=== PATIENT | female | born 1985 | race Hispanic/Latino ===

== ENCOUNTER 2024-12-06 07:48 | Emergency (ER) | payer OTHER ==
[2024-12-06] MEDS ORDERED: ONDANSETRON 4 MG/2 ML VIAL ONE (08:25)
[2024-12-06] MEDS ORDERED: HYDROCODONE/APAP 5/325 MG TAB ONE (08:25)
[2024-12-06] MEDS ORDERED: MORPHINE 4 MG/ML SYR ONE (08:25)
--- NOTE | 2024-12-06 09:01 | RAD REPORT ---
Exam:Wrist Left 2 View HISTORY: Left wrist pain FINDINGS: Fracture distal diaphysis left radius with marked displacement of the fracture fragments
--- NOTE | 2024-12-06 09:51 | ER ---
Nurse's Notes [facility] Name: Kimberly Daniels Age: 39 yrs Sex: Female : 1985 Arrival Date: 12/06/2024 Time: 07:48 Bed 11 Private MD: Diagnosis: Fracture of shaft of radius Presentation: 12/06 08:45 Chief complaint: Patient states: slipped and fell, left wrist injury. Coronavirus iw screen: At this time, the client does not indicate any symptoms associated with coronavirus-19. Ebola Screen: No symptoms or risks identified at this time. Initial Sepsis Screen: Does the patient meet any 2 criteria? No. Patient's initial sepsis screen is negative. Does the patient have a suspected source of infection? No. Patient's initial sepsis screen is negative. Risk Assessment: Do you want to hurt yourself or someone else? Patient reports no desire to harm self or others. Onset of symptoms was December 06, 2024. 08:45 Method Of Arrival: Ambulatory iw 08:45 Acuity: SARAH 3 iw Historical: - Allergies: 08:46 No Known Allergies; iw - PMHx: 08:46 None; iw - PSHx: 08:46 section; iw Screenin:19 [facility] ED Fall Risk Assessment (Adult) History of falling in the last 3 months, iw including since admission Yes- single mechanical fall (1 pt) Confusion or Disorientation No (0 pts) Intoxicated or Sedated No (0 pts) Impaired Gait No (0 pts) Mobility Assist Device Used No (0 pt) Altered Elimination No (0 pt) Score/Fall Risk Level 0 - 2 = Low Risk Oriented to surroundings, Maintained a safe environment. Abuse screen: Denies threats or abuse. Denies injuries from another. Nutritional screening: No deficits noted. Tuberculosis screening: No symptoms or risk factors identified. Assessment: 10:00 General: Appears uncomfortable, Behavior is cooperative, appropriate for age. Pain: iw Complains of pain in left wrist and dorsal aspect of left forearm. Neuro: Level of Consciousness is awake, alert, obeys commands, Oriented to person, place, time, situation, Moves all extremities. Full function. Cardiovascular: Patient's skin is warm and dry. Respiratory: Respiratory effort is even, unlabored, Respiratory pattern is regular, symmetrical. Derm: Skin is intact. Musculoskeletal: Range of motion: limited in left wrist and dorsal aspect of left forearm. Vital Signs: 08:45 BP 144 / 97; Pulse 87; Resp 18; Temp 98.7; Pulse Ox 99% on R/A; Weight 122.47 kg; iw Height 5 ft. 4 in. ; Pain 10/10; 08:45 Body Mass Index 46.34 (122.47 kg, 162.56 cm) iw 08:45 Pain Scale: Adult iw ED Course: 07:49 Patient arrived in ED. mr 07:57 Brannon Cox FNP-C is PHCP. dr5 07:57 David Martins MD is Attending Physician. dr5 08:41 Wrist Left 2 View In Process Unspecified. EDMS 08:45 Torri Carpio, GIN is Primary Nurse. iw 08:46 Triage completed. iw 08:50 Inserted saline lock: 20 gauge in right antecubital area, using aseptic technique. zm Flushed with 10 mL NS. 09:44 Orthoglass splint: Sugar tong splint applied on left arm. Sling applied to left arm. zm 09:49 Israel Smith MD is Referral Physician. dr5 09:49 Dexter Rosas MD is Referral Physician. dr5 Administered Medications: 08:47 Drug: HYDROcodone-acetaminophen PO 5 mg-325 mg 2 tabs PO once Route: PO; iw 11:49 Follow up: Response: No adverse reaction; Pain is decreased iw 09:13 Drug: Ondansetron IVP 4 mg IVP once; over 2 minutes Route: IVP; Site: right antecubital;iw 09:35 Follow up: Response: No adverse reaction iw 09:14 Drug: morphine IVP or IV 4 mg IVP once over 4 mins Route: IVP; Infused Over: 4 mins; iw Site: right antecubital; 09:35 Follow up: Response: No adverse reaction; Pain is decreased iw Outcome: 09:50 Discharge ordered by . dr5 10:20 Patient left the ED. iw Signatures: Dispatcher [employer] EDNV Lianne Patiño, Reg Reg mr Torri Carpio, RN RN iw Antonia Durand Dustin, FNP-C ENGINEERING TECHNICAL WRITER-Cdr5 Corrections: (The following items were deleted from the chart) 12:01 11:55 General: Appears uncomfortable, iw iw 12:01 11:00 Pain: Complains of pain in left wrist and dorsal aspect of left forearm iw iw : 11:00 Neuro: Level of Consciousness is awake, alert, obeys commands, Oriented to iw person, place, time, situation, Moves all extremities. Full function iw : 11:00 Cardiovascular: Patient's skin is warm and dry. iw iw : 11:00 Derm: Skin is intact, iw iw : 11:00 Musculoskeletal: Range of motion: limited in left wrist and dorsal aspect of left iw forearm iw : 11:00 General: Appears uncomfortable, Behavior is cooperative, appropriate for age, iw iw : 11:00 Respiratory: Respiratory effort is even, unlabored, Respiratory pattern is iw regular, symmetrical, iw
--- NOTE | 2024-12-06 09:51 | EDPHYS ---
Physician Documentation [facility] Name: Kimberly Daniels Age: 39 yrs Sex: Female : 1985 Arrival Date: 12/06/2024 Time: 07:48 Bed 11 Private MD: ED Physician David Martins HPI: 12/06 08:48 This 39 yrs old Female presents to ER via Ambulatory with complaints of Fall dr5 Injury, Left, Wrist Injury. 08:48 Patient is a 39-year-old female with no past medical history coming in with FOOSH dr5 injury to left wrist/forearm that occurred this morning while walking the dog. She slipped and fell. Patient denies numbness or tingling.. Historical: - Allergies: 08:46 No Known Allergies; iw - PMHx: 08:46 None; iw - PSHx: 08:46 section; iw ROS: 08:48 Constitutional: as per hpi dr5 Exam: 08:48 Constitutional: This is a well developed, well nourished patient who is awake, alert, dr5 and in no acute distress. Head/Face: Normocephalic, atraumatic. ENT: Nares patent. No nasal discharge, no septal abnormalities noted. Tympanic membranes are normal and external auditory canals are clear. Oropharynx with no redness, swelling, or masses, exudates, or evidence of obstruction, uvula midline. Mucous membranes moist. Neck: Trachea midline, no thyromegaly or masses palpated, and no cervical lymphadenopathy. Supple, full range of motion without nuchal rigidity, or vertebral point tenderness. No Meningismus. Cardiovascular: Regular rate and rhythm with a normal S1 and S2. Normal PMI, no JVD. No pulse deficits. Respiratory: Lungs have equal breath sounds bilaterally, clear to auscultation. No rales, rhonchi or wheezes noted. No increased work of breathing, no retractions or nasal flaring. Back: No spinal tenderness. No costovertebral tenderness. Full range of motion. Skin: Warm, dry with normal turgor. Normal color with no rashes, no lesions, and no evidence of cellulitis. 08:48 Musculoskeletal/extremity: Extremities: noted in the dorsal aspect of left forearm and left wrist: deformity, swelling, tenderness, ROM: limited passive range of motion due to pain, in the left arm, Circulation is intact in all extremities. Sensation intact. Vital Signs: 08:45 BP 144 / 97; Pulse 87; Resp 18; Temp 98.7; Pulse Ox 99% on R/A; Weight 122.47 kg; iw Height 5 ft. 4 in. ; Pain 06/24; 08:45 Body Mass Index 46.34 (122.47 kg, 162.56 cm) iw 08:45 Pain Scale: Adult iw Procedures: 10:09 Splinting: Splint applied to left arm and left wrist using Orthoglass splint, sling, dr5 applied by nurse. Examined by me, post splint application: neurovascular intact, 2+ distal pulses palpable, brisk capillary refill noted, Patient tolerated well. MDM: 08:00 Medical Screening Exam initiated dr5 08:48 Differential diagnosis: abrasion, contusion, fracture, sprain, strain. Data reviewed: dr5 vital signs, nurses notes, radiologic studies, plain films. 10:09 Counseling: I had a detailed discussion with the patient and/or guardian regarding the dr5 historical points, exam findings, and any diagnostic results supporting the discharge/admit diagnosis, the presence of at least one elevated blood pressure reading (>120/80) during this emergency department visit, radiology results, the need for outpatient follow up, for definitive care, a family practitioner, a orthopedic surgeon, to return to the emergency department if symptoms worsen or persist or if there are any questions or concerns that arise at home. ED course: Discussed findings with patient and placed in sugar-tong splint and sling. Recommended patient go follow-up with orthopedics today or tomorrow for further management. Patient was given pain medication ADR and is feeling much better. CD printed and x-ray results printed and given to patient and her discharge paperwork to take to orthopedic today. Patient given work note to take out for the week. Patient reports that she will see orthopedics today or tomorrow. All questions answered. Patient remains neurovascular intact after splint placement.. 12/06 08:41 Order name: Wrist Left 2 View; Complete Time: 09:05 EDMS 12/06 08:57 Order name: Sugar Tong Forearm Splint; Complete Time: 09:44 dr5 12/06 08:57 Order name: Sling; Complete Time: 09:44 dr5 Administered Medications: 08:47 Drug: HYDROcodone-acetaminophen PO 5 mg-325 mg 2 tabs PO once Route: PO; iw 11:49 Follow up: Response: No adverse reaction; Pain is decreased iw 09:13 Drug: Ondansetron IVP 4 mg IVP once; over 2 minutes Route: IVP; Site: right antecubital;iw 09:35 Follow up: Response: No adverse reaction iw 09:14 Drug: morphine IVP or IV 4 mg IVP once over 4 mins Route: IVP; Infused Over: 4 mins; iw Site: right antecubital; 09:35 Follow up: Response: No adverse reaction; Pain is decreased iw Disposition Summary: 12/06/24 09:50 Discharge Ordered Notes: Location: Home dr5 Condition: Stable dr5 Diagnosis - Fracture of shaft of radius dr5 Followup: dr5 - With: Emergency Department - When: As needed - Reason: Worsening of condition Followup: dr5 - With: Israel Smith MD - When: 1 - 2 days - Reason: Recheck today's complaints, Continuance of care, Re-evaluation by your physician Followup: dr5 - With: Dexter Rosas MD - When: 1 - 2 days - Reason: Recheck today's complaints, Continuance of care, Re-evaluation by your physician Discharge Instructions: - Discharge Summary Sheet dr5 - Radial Fracture dr5 - How to Use a Sling dr5 Forms: - Work release form dr5 - Medication Reconciliation Form dr5 - Prescription Opioid Use dr5 - Patient Portal Instructions dr5 - Leadership Thank You Letter dr5 Prescriptions: - Ibuprofen 800 mg Oral Tablet - take 1 tablet ORAL route every 12 hours As needed take with food; 20 tablet; dr5 Refills: 0, Product Selection Permitted - Hydrocodone-Acetaminophen 7.5-325 mg Oral Tablet - take 1 tablet ORAL route every 6 hours As needed; 12 tablet; Refills: 0, dr5 Product Selection Permitted Addendum: 12/07/2024 11:22 I was immediately available for consultation during this patient's visit. I did not e c2 personally see the patient or discuss the patient with the ABHI. . Signatures: Dispatcher [employer] Torri Olson, GIN [place] iw David Martins MD MD ec2 Brannon Cox, BULKHEAD CARPENTER-C BULKHEAD CARPENTER-Cdr5 Corrections: (The following items were deleted from the chart) 12/06 08:21 08:21 Wrist Left 3 View+RAD.RAD.BRZ ordered. EDMS EDMS
[2024-12-06 11:03] VITALS: BP 144/97; TEMP 98.7; O2SAT 99
== END 2024-12-06 10:20 | disposition home or self-care (01) ==
LOC: ER 07:48
PROC: 2W3DX1Z Immobilization of Left Lower Arm using Splint (ICD-10-PCS; principal; 2024-12-06)
DX: S52.302A Unspecified fracture of shaft of left radius, initial encounter for closed fracture (principal); W01.0XXA Fall on same level from slipping, tripping and stumbling without subsequent striking against object, initial encounter
CPT/HCPCS: 73100; 96375; 96374; 99284; 29125; J2405

== ENCOUNTER 2024-12-10 05:27 | Day surgery (SDC) | payer OTHER ==
[2024-12-10] MEDS: Ringers Lactate 1,000 ML IV ONE (05:50)
[2024-12-10] MEDS ORDERED: LIDOCAINE 1% MPF 5 ML VIAL ONE (06:20)
[2024-12-10] MEDS ORDERED: FENTANYL CITR 100 MCG/2 ML ONE (06:21)
[2024-12-10] MEDS ORDERED: dexAMETHasone 4 MG/ML VIAL ONE (06:21)
[2024-12-10] MEDS ORDERED: MIDAZOLAM HCL 2 MG/2 ML INJ ONE (06:21)
[2024-12-10] MEDS ORDERED: EPINEPHRINE 1 MG/ML VIAL ONE (06:22)
[2024-12-10] MEDS ORDERED: LIDOCAINE 2% MPF 5 ML VIAL ONE (06:59)
[2024-12-10] MEDS ORDERED: DEXMEDETOMIDINE HCL 200 MCG/2 ML VIAL ONE (06:59)
[2024-12-10] MEDS ORDERED: MAGNESIUM SULFATE 1 gm IVPB 1 GM/100 ML BAG IV ONE (07:00)
[2024-12-10] MEDS ORDERED: propofoL 200 MG/20 ML VIAL IV ONE (07:00)
[2024-12-10] MEDS ORDERED: KETAMINE HCL IN 0.9 % NACL 50 MG/5 ML SYRINGE IV ONE (07:14)
[2024-12-10] MEDS ORDERED: ONDANSETRON 4 MG/2 ML VIAL ONE (07:17)
[2024-12-10] MEDS ORDERED: dexAMETHasone 10 MG/ML VIAL ONE (07:17)
[2024-12-10] MEDS: CEFAZOLIN SODIUM 1 GM/VIAL ONE (07:24)
[2024-12-10] MEDS: MEPERIDINE HCL 25 MG/ML SYR ONE (09:13)
[2024-12-10] MEDS: HYDROMORPHONE HCL 1 MG/ML INJ ONE (09:20)
[2024-12-10] MEDS: HYDROCODONE/APAP 7.5/325 MG TAB ONE (10:12)
--- NOTE | 2024-12-10 10:20 | OP ---
Date of Procedure: 12/10/2024 Surgeon: Andrea Avalos MD Preoperative Diagnosis: Left radius fracture, possible disruption of the distal radioulnar joint. Postoperative Diagnosis: Fracture of the radius with no noted disruption of the distal radioulnar marilee int, after fixation including both by palpation as well as by C-arm. Procedure: Open reduction and internal fixation of radius fracture with examination under anesthesia using C-arm of the distal radioulnar joint. Estimated Blood Loss: Less than 20 cc. Complications: There were no complications. Specimens: No pathology specimens sent. Indications For Operation: Ms. Daniels is a 39-year-old who unfortunately fell while walking the dog, arrived to see me in my office with a completely displaced and shortened distal third shaft of radius fracture. The ulna was examined by x-ray and found to be without fracture, giving the possibility o f disruption of the distal radioulnar joint; however, it is quite a bit more proximal basically near the limit of danger of this, although she is informed that we will be assessing it and we could possi rodger even pin the distal radioulnar joint or may the need to do open reduction if indicated. This was not done, but she understood this prior to the procedure. Description Of Procedure: The patient was taken to the operating room, placed in the supine position . General anesthesia was obtained by anesthesia staff. Following this, well-padded tourniquet was p laced on superior left arm. Left upper extremity was then prepped and draped in usual sterile fashio n for procedure. After this, anatomic landmarks are determined as possible. She does have quite a l arge arm with significant amount of adipose tissue. However, the most distal portion of the incision was made first to locate the flexor carpi radialis and ensured we were in the correct position. Aft er this was located, the incision was then carried down distally using this as well as other located landmarks to obtain correct position. The radial artery was identified and protected and the fractur e was easily visualized. The fracture ends were cleaned and muscles were elevated to allow for visua lization of both the distal and proximal portions of the radius. After this, it was then reduced. T he reduction appears to be very good and the plate was applied. As the plate was being applied, I th ink we lost a little bit of our radial bow and a little bit of our reduction. However, reduction sti ll remains excellent. Before the completion of the placement of further screws, I checked to ensure that pronation and supination wee unimpeded and did not appear to be; therefore, the remainder of the screws were placed. It was then assessed with biplanar C-arm radiography to ensure length of screws as well as position of plate and fracture. After this, attention was then turned to the distal radi oulnar joint. She does have quite a bit of adipose tissue, making palpation somewhat difficult, but obviously not palpated as being unstable. The C-arm was also used in 2 planes to assess motion at th e distal radioulnar joint and it did appear to be intact. Following this, the wound was gently irrig ated and the skin was closed using nylon sutures. The patient was placed in a well-padded sterile dr essing and splint, awakened, taken to recovery room in good condition. No complications. /JULIO Voice ID: [id number] Report ID: [id number]
[2024-12-10 11:37] VITALS: BP 126/75; TEMP 97; O2SAT 94
--- NOTE | 2024-12-11 08:44 | RAD REPORT ---
EXAM: Fluoroscopy use, Forearm Left HISTORY: [facility] RADIUS FX ORIF COMPARISON: None FINDINGS: A total of 20 images were sent to PACS, during a fluoroscopically guided open reduction and internal fixation of radius fracture. No radiologist was involved in protocoling or performance of the study, and no radiologist was present for the duration of the procedure. No interpretation of the saved images will be provided. Total fluoroscopy time: 0.4 minutes. IMPRESSION: Documentation of fluoroscopy use as above.
== END 2024-12-10 10:50 | disposition home or self-care (01) ==
LOC: OR 05:27
PROVIDERS: ATTEND Orthopaedic Surgery
PROC: 0PSJ04Z Reposition Left Radius with Internal Fixation Device, Open Approach (ICD-10-PCS; principal; 2024-12-10 07:00)
DX: S52.502A Unspecified fracture of the lower end of left radius, initial encounter for closed fracture (principal)
CPT/HCPCS: 36415; 84703; 73090; 25608; J3475; J2704; J1100 ×2; J2003 ×2; J2250; J3010; J2175; J0171; J1171; J2405; J7120; J0690